=== PATIENT | male | born 2000 | race Caucasian/White ===

== ENCOUNTER 2021-07-09 19:22 | Inpatient (IN) | payer MEDICAID, SELFPAY ==
[2021-07-09] VITALS (15 sets, daily range): BP systolic 110–137; BP diastolic 50–73; PULSE 96–109; RESP 12–27; TEMP 36.4–39.4; O2SAT 95–100
--- NOTE | 2021-07-09 19:30 | DI.CT_ITS ---
Exam(s) CT ABDOMEN PELVIS W EXAM: CT ABDOMEN PELVIS W CLINICAL HISTORY: ABD pain- RLQ. TECHNIQUE: Imaging Protocol: Axial computed tomography images with coronal and sagittal reformatted images were created and reviewed CONTRAST MATERIAL: Intravenous: Omnipaque 100cc Oral: None COMPARISON: No exams were available for comparison FINDINGS: VISUALIZED LUNG BASES: No nodules nor pleural effusions evident. ABDOMEN: LIVER: Liver is hypodense implying steatosis. However, there are no discrete focal hepatic lesions i dentified. GALLBLADDER/BILIARY: No obvious gallbladder pathology. CBD is not dilated. PANCREAS: No evidence of pancreatic mass nor dilatation of the pancreatic duct. SPLEEN: Spleen is not enlarged. No obvious intrasplenic lesions. Splenic and portal veins are paten t. ADRENALS: There are no significant adrenal masses. KIDNEYS:No cysts evident. No solid renal masses. No calculi nor hydronephrosis.. ABDOMINAL AORTA: Abdominal aorta is not enlarged. LYMPH NODES:There is no retroperitoneal nor paraaortic adenopathy. ABDOMINAL WALL: No evidence of significant anterior abdominal wall nor inguinal hernia. PELVIS: GI: There is evidence of acute appendicitis. The appendix is swollen to 14 millimeter diameter and c ontains an appendicular list within its lumen which measures 9 x 7 millimeters. There is abundant ph legmonous streaking around the appendix as well as some fluid in the right paracolic gutter. No free air. No formed abscess. No enlarged lymph nodes are noted in the mesoappendix.There is a small carolee unt of fluid in the right-side of the dependent aspect of the pelvis.There is no significant sigmoid diverticular disease.. No evidence of bowel obstruction LYMPH NODES: There is no intrapelvic nor inguinal adenopathy. REPRODUCTIVE: Prostate not enlarged. URINARY BLADDER: No calculi nor obvious masses evident OSSEOUS: No significant osseous lesions. IMPRESSION: 1. Findings are consistent with severe acute appendicitis. Appendix lumen is significantly swollen a nd also contains an appendicolith. Abundant phlegmonous streaking in this region. High risk for dev eloping abscess. Study 1st read by [facility] RADIATION DOSE DELIVERED: 878.33mGy.cm Total DLP DATA REPOSITORY: All CT scans at this facility are submitted to the National Radiology Data Registry (NRDR) Dose Index Registry (DIR) with the [employer] (ACR). RADIATION OPTIMIZATION: All CT scans at this facility use at least one of these dose optimization te chniques: automated exposure control; mA and/or kV adjustment per patient size (includes targeted exa ms where dose is matched to clinical indication); or iterative reconstruction.
--- NOTE | 2021-07-09 19:41 | ED.GENADUL_ITS ---
Discharge Plan Disposition Patient Disposition: [facility] INPATIENT Condition: Fair Discharge Details Clinical Impression: Acute appendicitis Admit Date/Time: 07/09/21 20:25 Admit Provider: Radha Green Attending Provider: Radha Green Primary Care Provider: Dilan Vásquez ED Provider: Billy Schmidt Discharge Data Discharge Date/Time-TO BE ENTERED AT DEPARTURE: 07/09/21 21:29 Medical Decision Making Patient presenting to the emergency department for chief complaint of severe abdominal pain. Patient states over the last 3 to 4 days he has had nausea with close to vomiting, diarrhea, and abdominal pain. He states that it seems like it is migrated from general abdominal pain to the right lower quadrant recently. He states subjective fever and chills. Denies previous abdominal surgeries, history of kidney stones, or trauma. Physical exam shows acutely ill patient with significant amount of pain holding right lower quadrant of abdomen. Diffuse guarding throughout the abdomen with exquisite pain with palpation of right lower quadrant. Normal to hypoactive bowel sounds were somewhat appreciated but difficult to fully appreciate given patient amount of pain. Plan to perform labs, CT imaging, and treat pain and nausea. Labs show significant leukocytosis, CMP nondiagnostic with noted abnormalities, and CT imaging shows appendicitis with radiologist noting no rupture. Surgeon was contacted for admission and that she placed admission orders. As requested Zosyn was ordered in the emergency department pending admission. Discussed plan of care with patient and he is agreeable to admission and states no further questions at time of discussion. HPI General Mode of arrival: ambulatory . Date/Time Provider Initiated Documentation: 07/09/21 19:23 . Limitations to Documentation: no limitations . Information obtained by: patient . History of Present Illness 20 year old M presents to the emergency department with the chief complaint of abd pain -RLQ, described as severe, with intensity rated at 9. Quality is described as sharp, and is localized to the abdomen. Patient abdomen. Patient started experiencing this day(s) (3) and it has been constant. No relieving factors improve symptom(s), No exacerbating factors reported . Patient notes fever/chills and nausea/vomiting. Patient did receive the following treatments prior to arrival, NSAID Related Data Home Medications Medication Instructions Recorded Confirmed Unknown [No Known Home Meds] 07/09/21 07/09/21 Allergies Allergy/AdvReac Type Severity Reaction Status Date / Time No Known Allergies Allergy Unverified 07/09/21 19:34 General Stated Complaint: Abd Prob FIDELINA: 3 Review of Systems Constitutional Constitutional: Reports chills, Reports fever(s) and Reports poor appetite Cardiovascular Cardiovascular: Denies chest pain and Denies dyspnea Respiratory Respiratory: Denies cough and Denies dyspnea Gastrointestinal Gastrointestinal: Reports as per HPI, Reports abdominal pain, Denies melena, Denies change in bowel habits, Denies constipation, Reports diarrhea, Reports nausea and Denies vomiting Genitourinary Genitourinary: Denies hematuria, Denies difficulty urinating, Denies testicular pain, Denies urinary hesitancy, Denies urinary incontinence and Denies urinary urgency Integumentary/Breasts Skin/Breast: Denies rash PFSH All Active Problems (Updated 07/10/21 @ 11:40 by Radha Green DO) Perforated appendicitis (Acute) Acute appendicitis (Acute) Medical History (Updated 07/10/21 @ 11:40 by Radha Green DO) Asthma Family History (Updated 06/06/16 @ 13:51 by Mandy Mojica NP) Mother No problems noted. Father No problems noted. Sister No problems noted. Brother No problems noted. Other Depression Social History Smoking/Tobacco Use Status: Never Smoking risk assessment performed?: Yes Alcohol Intake: current Alcohol Intake frequency: holidays/special occasions only Substance use type: does not use Do you feel safe at home: Yes Do you feel safe in your relationship?: Yes Exam Const General: cooperative and ill appearing acutely Orientation: alert, awake and oriented x3 Resp Effort & Inspection: normal respiratory effort and able to speak in complete sentences Auscultation: clear to auscultation bilaterally Cardio Rate: regular rate Rhythm: regular rhythm Heart Sounds: S1 normal and S2 normal GI Palpation: soft, no hepatosplenomegaly, not firm, guarding, no masses, no pulsatile masses, not rigid, no splenomegaly and tender in the RLQ and psoas sign positive; Hayden's sign negative Auscultation: normal bowel sounds Back/Spine/Pelvis Back: no CVA tenderness Neuro General: patient alert, patient awake, patient oriented x3, gait normal and moves all extremities Course Vital Signs Vital signs: Vital Signs Temperature 36.4 C L 07/09/21 19:27 Pulse 97 H 07/09/21 19:27 Respiratory Rate 24 07/09/21 19:27 Blood Pressure 113/61 07/09/21 19:27 Pulse Oximetry 96 07/09/21 19:27 Temperature 36.4 C L 07/09/21 19:27 Temperature Source Skin 07/09/21 19:27 Pulse 97 H 07/09/21 19:27 Respiratory Rate 24 07/09/21 19:27 Blood Pressure 113/61 07/09/21 19:27 Blood Pressure Position Sitting 07/09/21 19:27 Pulse Oximetry 96 07/09/21 19:27 Oxygen Delivery Method Room Air 07/09/21 19:27 Oxygen Flow Rate 0 07/09/21 19:27 Pain Level 9 07/09/21 19:27 Comment 07/09/21 19:27
[2021-07-09] MEDS: Normal Saline 1,000 ML 1000 ML IV (19:48)
[2021-07-09 19:52] LABS: HGB 15.2 g/dL (13.5-17.5); MCH 26.2 pg (27.0-33.0); MCHC 32.3 % (32.0-36.0); MPV 10.2 fL (8.0-11.0); Nucleated RBC 0 %; Platelet Count 334 10^3/uL (130-400); RDW 12.2 % (11.8-14.1); RDW-SD 35.6 fL; WBC 20.81 10^3/uL (4.4-10.8)
[2021-07-09] MEDS: HYDROmorphone 2 MG/ML VIAL 0.5 MG IVP (19:52)
[2021-07-09] MEDS: Ondansetron 4 MG/2 ML VIAL IVP (19:53)
[2021-07-09] MEDS: Omnipaque 350 MG/ML 100 ML BTL IJ (19:57)
[2021-07-09 20:15] LABS: ALT 52 U/L (16-63); AST 16 U/L (15-37); Albumin 4.2 g/dL (3.4-5.0); Alkaline Phosphatase 132 U/L (46-116); BUN 7 mg/dL (7-18); Bilirubin, Total 0.8 mg/dL (0.2-1.0); CREATININE 0.9 mg/dL (0.70-1.30); Calcium 9.2 mg/dL (8.5-10.1); Chloride 100 mmol/L (98-107); Glucose 135 mg/dL (74-106); Lipase 67 U/L (73-393); Magnesium 1.7 mg/dL (1.8-2.4); Potassium 3.4 mmol/L (3.5-5.1); Sodium 137 mmol/L (136-145); Total Protein 8.4 g/dL (6.4-8.2)
[2021-07-09 20:23] LABS: Source Nasopharynx
--- NOTE | 2021-07-09 20:24 | DI.VRAD_ITS ---
Addendum created by Minoo Mg MD on 07/09/2021 8:26:41 PM EST: THIS REPORT CONTAINS FINDINGS THAT MAY BE CRITICAL TO PATIENT CARE. The pertinent findings were verbally communicated via telephone conference with GEORGE WEBER at 20:25 EST on 07/09/2021. The findings were acknowledged and understood. Initial report created on 07/09/2021 8:24:09 PM EST: PROCEDURE INFORMATION: Exam: CT Abdomen And Pelvis With Contrast Exam date and time: 07/09/2021 19:42 Age: 20 years old Clinical indication: Abdominal pain; Localized; Right lower quadrant (rlq); Patient HX: Abd pain - rlq TECHNIQUE: Imaging protocol: Computed tomography of the abdomen and pelvis with contrast. COMPARISON: No relevant prior studies available. FINDINGS: Liver: No mass. Gallbladder and bile ducts: No calcified stones. No ductal dilation. Pancreas: No ductal dilation. No masses. Spleen: No splenomegaly or focal lesions. Adrenal glands: No mass. Kidneys and ureters: No hydronephrosis. No renal masses. Stomach and bowel: Moderate wall thickening in the cecum. No focal pathology in the small bowel. Appendix: Acute appendicitis. The appendix measures up to 15 mm in diameter. Wall thickening and moderate surrounding edema. Proximal appendiceal stone. Intraperitoneal space: Sliver of free fluid in the pelvis in the rectovesical space. No abscess or free air. Vasculature: No abdominal aortic aneurysm. Lymph nodes: No significantly enlarged lymph nodes. Urinary bladder: Unremarkable as visualized. Reproductive: Unremarkable as visualized. Bones/joints: No acute fracture. Soft tissues: No suspicious lesions. IMPRESSION: 1. Acute appendicitis. No perforation or abscess. 2. Moderate reactive colitis of the cecum. Dictated and Authenticated by: Minoo Mg MD. Ordering:NOEL Cervantes MD
[2021-07-09 20:25] LABS: Absolute Lymphocyte Count 3.75 10^3/uL (1.2-3.4); Absolute Monocyte Count 1.87 10^3/uL (0.1-0.8); Absolute Neutrophil Count 15.19 10^3/uL (1.2-6.7); Atypical Lymphocytes % 7; Diff Comment Manual Differential; RBC Morphology Normal
[2021-07-09] MEDS: PIPERACILLIN/TAZO 4.5 GM in Normal Saline 100 ML IVPB (20:33)
--- NOTE | 2021-07-09 20:38 | HPE_ITS ---
Date of service: 07/09/21 Time of Service: 21:39 Assessment and Plan Assessment and plan (1) Acute appendicitis: Status: Acute Assessment and plan: -NPO, IV fluids, electrolytes and IV antibiotics to be initiated in the ER -COVID test pending -Scheduled IV tylenol, PRN Morphine or Dilaudid for pain control -Repeat labs in AM and plan to proceed with appendectomy first thing in the morning, OR crew aware -Lovenox for SVT ppx -Pepcid for GI ppx Qualifiers: Acute appendicitis type: with localized peritonitis Appendicitis abscess presence: without abscess Appendicitis gangrene presence: unspecified whether gangrene present Appendicitis perforation presence: unspecified whether perforation present Qualified Code(s): K35.30 - Acute appendicitis with localized peritonitis, without perforation or gangrene History of Present Illness Consults Consult date: 07/09/21 Narrative: 20 year old male with no past medical history who presented to the ER complaining of 3 days of abdominal pain that began around the umbilicus and migrated to the right lower quadrant. He reports fever and chills and taking motirn at home with little relief. Basic laboratory studies in the ER revealed evidence of leukocytosis of 20k, hypokalemia and hypomagnesemia, I have ordered him to receive 2g of MgSO4 and 10mg IV KCl. CT scan done in the ER revealed evidence of acute appendicitis with appendicolith. No reported perforation or abscess but significant periappendiceal inflammation is seen as well as free fluid in the pelvis. Patient was given IV Zosyn in the ER and at the time of consultation COVID screening remains pending. Review of Systems All systems reviewed & are unremarkable except as noted in HPI and below PFSH All Active Problems (Updated 07/09/21 @ 21:01 by Billy Schmidt NP) Acute appendicitis (Acute) Medical History (Updated 07/09/21 @ 21:01 by Billy Schmidt NP) Asthma Family History (Updated 06/06/16 @ 13:51 by Mandy Mojica NP) Mother No problems noted. Father No problems noted. Sister No problems noted. Brother No problems noted. Other Depression Social History Smoking/Tobacco Use Status: Never Smoking risk assessment performed?: Yes Alcohol Intake: current Alcohol Intake frequency: holidays/special occasions only Substance use type: does not use Do you feel safe at home: Yes Do you feel safe in your relationship?: Yes Meds Allergies and Home Medications Allergies Allergy/AdvReac Type Severity Reaction Status Date / Time No Known Allergies Allergy Unverified 07/09/21 19:34 Home Medications Medication Instructions Recorded Confirmed Type Unknown [No Known Home Meds] 07/09/21 07/09/21 History Exam Const General: cooperative, healthy appearing and other (appears uncomfortable) [facility] Head: normal to inspection and atraumatic Eyes General: appearance normal, both eyes and all related structures Eyelids: eyelids normal Conjunctivae: conjunctivae normal Sclera: sclerae normal Resp Effort & Inspection: normal respiratory effort, able to speak in complete sentences, no audible wheezes and no respiratory distress Cardio Rate: regular rate Rhythm: regular rhythm GI Inspection: normal to inspection Palpation: soft, guarding and tender in the RLQ and at McBurney's point Percussion: normal to percussion Skin General skin exam: no rashes or lesions noted Neuro General: patient alert, patient awake and patient oriented x3 Extrem General: normal to inspection and full ROM Results Labs Result diagrams: 07/10/21 07:12 07/10/21 07:12 Labs: Laboratory Results - last 24 hr 07/09/21 07/09/21 07/09/21 19:48 19:48 20:20 WBC 20.81 H RBC 5.80 H Hgb 15.2 Hct 47.0 MCV 81.0 MCH 26.2 L MCHC 32.3 RDW 12.2 Plt Count 334 MPV 10.2 Immature Gran % 0.0 Neutrophils % 73.0 Lymphocytes % 11.0 Atypical Lymphs % 7 Monocytes % 9.0 Eosinophils % 0.0 Basophils % 0.0 Nucleated RBC % 0 Absolute Neutrophils 15.19 H Absolute Lymphocytes 3.75 H Absolute Monocytes 1.87 H Absolute Eosinophils 0.00 Absolute Basophils 0.00 RBC Morphology Normal Sodium 137 Potassium 3.4 L Chloride 100 Carbon Dioxide 24.0 Anion Gap 13.0 H BUN 7 Creatinine 0.9 Estimated GFR/1.73 m2 >= 60.00 Glucose 135 H Calcium 9.2 Magnesium 1.7 L Total Bilirubin 0.8 AST 16 ALT 52 Alkaline Phosphatase 132 H Total Protein 8.4 H Albumin 4.2 Lipase 67 COVID-19 Source Nasopharynx Last Vital Signs Temp 97.5 F L 07/09/21 19:27 Pulse 105 H 07/09/21 20:15 Resp 24 07/09/21 19:27 BP 137/50 L 07/09/21 20:15 Pulse Ox 97 07/09/21 20:20
[2021-07-09 20:40] LABS: Bilirubin Negative (Negative); Blood Trace-intact (Negative); Clarity Clear (Clear); Glucose Negative (Negative); Ketones 80 mg/dL (Negative); Leukocyte Esterase Negative (Negative); Nitrite Negative (Negative); Urobilinogen 0.2 EU/dL (Up TO 0.2); pH 6.5 (5-8)
[2021-07-09 20:51] LABS: Bacteria Negative HPF (Negative); C & S Indicated? No; Casts 0-2 Hyaline LPF (Negative); Crystals Negative HPF (Negative); Epithelial Cells Negative HPF (Negative); Mucus Trace (Negative); RBC 0-2 HPF (0-2); WBC Negative HPF (0-5)
[2021-07-09] MEDS: Lactated Ringers 1,000 ML 125 ML IV (20:56)
[2021-07-09 21:05] LABS: COVID-19 PCR Negative (Negative); Influenza A PCR Negative (Negative); Influenza B PCR Negative (Negative); RSV PCR Negative (Negative)
[2021-07-09] MEDS: ACETAMINOPHEN 1,000 MG/100 ML BTL 400 MG IVPB (22:20)
[2021-07-09] MEDS: Pantoprazole 40 MG VIAL IVP (22:21)
[2021-07-09] MEDS: Normal Saline Flush 10 ML SYR IVP (22:21)
[2021-07-09] MEDS: Normal Saline 500 ML 30 ML IV (22:22)
[2021-07-09] MEDS: POTASSIUM CHLORIDE 10 MEQ/100 ML BAG 100 MEQ IVPB (23:23)
[2021-07-10] VITALS (15 sets, daily range): BP systolic 109–140; BP diastolic 55–84; PULSE 87–104; RESP 16–25; TEMP 36.3–38.4; O2SAT 96–99; BMI 25.7
[2021-07-10] MEDS: Normal Saline Flush 10 ML SYR IVP ×3 (00:04→22:43)
[2021-07-10] MEDS: MAGNESIUM SULFATE 2 GM/50 ML BAG IVPB (00:57)
[2021-07-10] MEDS: PIPERACILLIN/TAZO 3.375 GM in Normal Saline 50 ML IVPB ×4 (03:38→22:42)
[2021-07-10] MEDS: ACETAMINOPHEN 1,000 MG/100 ML BTL 400 MG IVPB ×3 (04:29→16:41)
[2021-07-10] MEDS: Lactated Ringers 1,000 ML 125 ML IV ×2 (06:47→14:59)
[2021-07-10] MEDS: Enoxaparin 40 MG/0.4 ML SYR SC (07:41)
[2021-07-10 07:49] LABS: Absolute Basophil Count 0.03 10^3/uL (0.0-0.2); Absolute Lymphocyte Count 1.95 10^3/uL (1.2-3.4); Basophils % 0.2; Eosinophils % 0.1; HCT 42.4 % (40.0-50.0); HGB 13.6 g/dL (13.5-17.5); Immature Grans % 0.7; Lymphocytes % 12.8; MCH 26.3 pg (27.0-33.0); MCHC 32.1 % (32.0-36.0); MCV 81.9 fL (80-95); MPV 10.4 fL (8.0-11.0); Monocytes % 9.8; Neutrophils % 76.4; Nucleated RBC 0 %; Platelet Count 227 10^3/uL (130-400); RBC 5.18 10^6/uL (4.36-5.78); RDW 12.3 % (11.8-14.1); RDW-SD 37.2 fL; WBC 15.26 10^3/uL (4.4-10.8)
[2021-07-10 07:55] LABS: Absolute Eosinophil Count 0.02 10^3/uL (0.0-0.7); Absolute Neutrophil Count 11.66 10^3/uL (1.2-6.7)
[2021-07-10 08:06] LABS: INR 1.2 (0.9-1.1); Prothrombin Time 11.9 sec (9.3-11.0)
[2021-07-10 08:07] LABS: ALT 39 U/L (16-63); AST 11 U/L (15-37); Albumin 3.3 g/dL (3.4-5.0); Alkaline Phosphatase 72 U/L (46-116); Anion Gap 11.8 mmol/L (3-11); BUN 8 mg/dL (7-18); CO2 25.2 mmol/L (21.0-32.0); CREATININE 0.8 mg/dL (0.70-1.30); Calcium 8.7 mg/dL (8.5-10.1); Chloride 103 mmol/L (98-107); Glucose 107 mg/dL (74-106); Potassium 3.6 mmol/L (3.5-5.1); Sodium 140 mmol/L (136-145); Total Protein 7.1 g/dL (6.4-8.2)
--- NOTE | 2021-07-10 08:20 | W.ANESPRE ---
General Info Date of Service Date Performed: 07/10/21 Height: 5 ft 11 in Weight: 83.6 kg Body Mass Index (BMI): 25.7 Surgical Procedure: Operation Date: 07/10/21 08:00 Proposed Procedures Side Surgeon p Appendectomy Laparoscopic Radha Green, Meds Allergies and Home Medications Allergies Allergy/AdvReac Type Severity Reaction Status Date / Time No Known Allergies Allergy Unverified 07/09/21 19:34 Home Medication Medication Instructions Recorded Unknown [No Known Home Meds] 07/09/21 Current Visit Medications: Current Medications Generic Name Dose Route Start Last Admin Trade Name Freq PRN Reason Stop Dose Admin Enoxaparin Sodium 40 mg 07/10/21 08:30 07/10/21 07:41 Enoxaparin 40 Mg/0.4 Ml Syr SC 40 mg Q24H [place] Administration Hydromorphone HCl 1 mg 07/09/21 20:25 Hydromorphone 2 Mg/Ml Vial IVP Q4H PRN PRN Pain Sodium Chloride 500 mls @ 0 mls/hr 07/09/21 20:25 07/09/21 22:22 Saline 500ml Bag IV 30 mls/hr PRN PRN Administration As Directed Ringer's Solution 1,000 mls @ 125 mls/hr 07/09/21 20:30 07/10/21 06:47 IV 125 mls/hr INFUSION [place] Administration Acetaminophen 1,000 mg in 100 mls @ 400 mls/hr 07/09/21 22:00 07/10/21 07:40 Ofirmev IVPB Infused Q6H [place] Infusion Piperacillin Sod/Tazobactam 50 mls @ 100 mls/hr 07/10/21 10:00 Sod 3.375 gm/ Sodium Chloride IVPB Q6H [place] Protocol IV Miscellaneous Supplies 1 each 07/09/21 20:30 Iv Access IV DIRECTED [place] Morphine Sulfate 4 mg 07/09/21 21:38 Morphine 4 Mg/Ml Syr IVP Q1H PRN PRN Ondansetron HCl 4 mg 07/09/21 20:25 Ondansetron 4 Mg/2 Ml Vial IVP Q4H PRN PRN Pantoprazole Sodium 40 mg 07/09/21 22:00 07/09/21 22:21 Pantoprazole 40 Mg Vial IVP 40 mg Q24H [place] Administration Sodium Chloride 0 ml 07/09/21 20:25 07/10/21 07:41 Normal Saline Flush 10 Ml Syr IVP 30 ml PRN PRN Administration PFSH Active Problems Active Problems: Problem Status Onset Code Acute appendicitis K35.80 Medical History Medical History (Updated 07/09/21 @ 21:01 by Billy Schmidt NP) Asthma Tobacco Smoking/Tobacco Use Status: Never Alcohol Alcohol Intake: current Alcohol intake frequency: holidays/special occasions only Substance Use Substance use type: does not use Vital Signs and Lab Results Vital Signs Most Recent Vital Signs in EMR: Most Recent Vital Signs Temp Pulse Resp BP Pulse Ox 37.2 C 104 H 16 113/69 96 07/10/21 06:22 07/10/21 03:39 07/10/21 03:39 07/10/21 03:39 07/10/21 03:39 Lab Results Result Diagrams: 07/10/21 07:12 07/10/21 07:12 Blood Type / Crossmatch: Patient ABO/Rh AB Positive 07/10/21 Antibody Screen NEGATIVE 07/10/21 Complete Blood Count: White Blood Count 15.26 10^3/uL (4.4-10.8) H 07/10/21 07:12 07/10/21 Red Blood Count 5.18 10^6/uL (4.36-5.78) 07/10/21 07:12 07/10/21 Hemoglobin 13.6 g/dL (13.5-17.5) 07/10/21 07:12 07/10/21 Hematocrit 42.4 % (40.0-50.0) 07/10/21 07:12 07/10/21 Platelet Count 227 10^3/uL (130-400) 07/10/21 07:12 07/10/21 Complete Metabolic Panel: Sodium Level 140 mmol/L (136-145) 07/10/21 07:12 07/10/21 Potassium Level 3.6 mmol/L (3.5-5.1) 07/10/21 07:12 07/10/21 Chloride Level 103 mmol/L (98-107) 07/10/21 07:12 07/10/21 Carbon Dioxide Level 25.2 mmol/L (21.0-32.0) 07/10/21 07:12 07/10/21 Blood Urea Nitrogen 8 mg/dL (7-18) 07/10/21 07:12 07/10/21 Creatinine 0.8 mg/dL (0.70-1.30) 07/10/21 07:12 07/10/21 Estimated GFR/1.73 m2 >= 60.00 (mL/min/1.73m2) 07/10/21 07:12 07/10/21 Magnesium Level 1.7 mg/dL (1.8-2.4) L 07/09/21 19:48 07/09/21 Calcium Level 8.7 mg/dL (8.5-10.1) 07/10/21 07:12 07/10/21 Albumin 3.3 g/dL (3.4-5.0) L 07/10/21 07:12 07/10/21 Glucose Level 107 mg/dL (74-106) H 07/10/21 07:12 07/10/21 Liver Function Panel: Alanine Aminotransferase (ALT/SGPT) 39 U/L (16-63) 07/10/21 07:12 07/10/21 Aspartate Amino Transf (AST/SGOT) 11 U/L (15-37) L 07/10/21 07:12 07/10/21 Coagulation Panel: INR International Normalized Ratio 1.2 (0.9-1.1) H 07/10/21 07:12 07/10/21 Prothrombin Time 11.9 sec (9.3-11.0) H 07/10/21 07:12 07/10/21 Cardiac Panel: No Data to Display Arterial Blood Gas: No Data to Display Venous Blood Gas: No Data to Display Pancreas Panel: Lipase 67 U/L (73-393) 07/09/21 19:48 07/09/21 Thyroid Panel: No Data to Display Infectious Disease: Coronavirus (COVID-19)(PCR) Negative (Negative) 07/09/21 20:20 07/09/21 Coronavirus 2019 Source Nasopharynx 07/09/21 20:20 07/09/21 Influenza Virus Type A (PCR) Negative (Negative) 07/09/21 20:20 07/09/21 Influenza Virus Type B (PCR) Negative (Negative) 07/09/21 20:20 07/09/21 Respiratory Syncytial Virus (PCR) Negative (Negative) 07/09/21 20:20 07/09/21 Blood Cultures: No Data to Display Toxicology Panel: No Data to Display Anesthesia Assessment and Plan Anesthesia History Personal History: No History of Anesthesia Complications Family History: No Family History of Anesthesia Complications Exercise Tolerance Exercise Tolerance: Metabolic Equivalents>4 Pertinent Negatives Pertinent Negatives: No Symptoms of GERD Cardiac & Pulmonary Exam Cardiac Exam: Normal S1/S2 Heart Sounds Pulmonary Exam: Clear Bilateral Breath Sounds Implantable Cardiac Device Does patient have a Pacemaker or an ICD?: No Airway Exam Known Difficult Airway: No Mallampati Class: 2 Mouth Opening: Normal (> 3cm) Thyromental Distance: Greater than 3 cm Neck Range of Motion: Full ROM Neck Circumference: Normal Teeth Condition: Normal Dentition ASA Classification ASA Score: ASA 2 Emergency Case?: No NPO Status NPO Status: NPO Clears >2 hours, Solids >8 hours Anesthesia Plan Resuscitation Status: Full Code Anesthesia Technique: General Anesthesia Airway Planned: Endotracheal Tube Monitors Used: Standard Monitors
[2021-07-10] MEDS: Bupivacaine LIPOSOME/PF 133 MG/10 ML VIAL IJ (09:17)
[2021-07-10] MEDS: Bupivacaine 0.25% Pres-Free 10 ML VIAL (09:17)
--- NOTE | 2021-07-10 10:00 | APP_PTH ---
PATIENT: Mark Anthony Underwood LOC: U#:[id number] AGE/SX: 20/M ROOM: 226 RE07/09/[address]: Radha Green DO : 2000 BED: A DIS: 07/13/2021 SPEC #: [id number] RECD: 07/11/21 12:22 STATUS: SOUT REQ #: [id number] LEE: 07/10/21 10:[address]: Radha Green DEPT: Surgical Specimen RECD BY: Radha Covarrubias ENTERED: 07/11/21 12:23 SP TYPE: Appendix OTHR DR: Dilan Vásquez DO Tissues: 1 - APPENDIX NOT INCIDENTAL Procedures: GROSS AND MICRO LEVEL 3 Comments: [id number]
--- NOTE | 2021-07-10 10:06 | W.PM.OP ---
Date of service: 07/10/21 Time of Service: 10:06 Operative Note Operative Note DATE OF PROCEDURE: 07/10/21 PRE-OP DIAGNOSIS: acute appendicitis perforated appendicitis with phlegmon PROCEDURE: laparoscopic appendectomy SURGEON: Radha Green DEHYDROGENATION CONVERTER HELPER: Blue Douglas ANESTHESIA TYPE: Local By Surgeon and General LMA/ETT Refer to Anesthesia Record ESTIMATED BLOOD LOSS: 10 PATHOLOGY: other (appendix) COMPLICATIONS: None Patient was transported to: PACU Patient's condition: stable Implants: none Indications: patient with clinical and CT evidence of acute appendicitis with possible perforation, after initiating IV antibiotics and discussing all risks benefits and alternatives with the patient informed consent was obtained for laparoscopic possible open appendectomy. Findings: large phlegmon surrounding appendix which was edematous and friable, likely perforated Procedure Description: Patient was taken to the operating room and placed on the operating room table in supine position. After taking care to ensure all dependent areas were adequately padded and the patient was comfortable general anesthesia was initiated. The patient was prepped and draped in the usual sterile fashion. Local anesthesia was injected into the infraumbilical tissues. Using a # 11 blade scalpel an incision was created and dissection was carried down through the subcutaneous tissues using Bovie electrocautery. The umbilical stalk was grasped with a zoya and lifted up. A small incision was created in the fascia gaining access to the abdominal cavity. A 12 mm port was subsequently placed and the abdomen was insufflated with CO2. A 5 mm camera was placed into the abdominal cavity which was explored. An area of phlegmonous changes was visualized in the right mid abdomen with inflammatory changes noted to the adjacent loops of bowel. Two 5 mm incisions were made after injection with local anesthesia and subsequent port placement under direct visualization in the super pubic area and left mid abdomen respectively. Blunt graspers were used to assist in lifting the very edematous and friable appendix. LigaSure device was used to assist with dissection of the mesoappendix and apprndix which was adhered to the lateral abdominal wall. Once the appendix was freed and able to be lifted up a small hole was created in the mesoappendix at the base in order to accommodate a 45 mm purple staple load. The apppendix was transected at its base successfully and LigaSure device again assisted in hemostatic dissection. there was a small amount of bleeding from the surrounding tissues due to the amount of inflammation but was able to be irrigated and suctioned out of the abdomen. Care was taken to ensure that the appendiceal tip was intact and no pieces were left behind. The appendix was placed into an Endo catch bag. there was no significant free fluid within the pelvis to suction out. Each 5 mm port was removed under direct visualization and appeared to be hemostatic. The appendix in the Endo catch bag was removed through the 12 mm port site. The umbilical fascia was closed in a figure of eight fashion using an 0-Vicryl. The skin was closed with a running 4-0 Monocryl and each 5 mm port site closed with an interrupted 4-0 Monocryl. Skin glue was applied over each incision site. All needle, sponge and instrument counts were correct x2 at the end of the procedure. The patient tolerated the procedure well without any complications and was transferred to PACU in stable condition once extubated.
[2021-07-10] MEDS: MORPHine 4 MG/ML SYR IVP ×2 (11:17→22:33)
--- NOTE | 2021-07-10 11:27 | W.ANESPOSTOP ---
Postoperative Evaluation Date, Time and Location Date Performed: 07/10/21 Time Performed: 11:00 Patient Location: PACU Vital Signs Most Recent Imported Vital Signs: Most Recent Vital Signs Temp Pulse Resp BP Pulse Ox 36.3 C L 89 18 133/84 99 07/10/21 10:59 07/10/21 10:59 07/10/21 10:59 07/10/21 10:59 07/10/21 10:59 Pain Score Most Recent Pain Score: Most Recent Pain Score Pain Level 5 07/10/21 04:29 Assessment Mental Status: Awake (Alert & Oriented to Patient Baseline) Airway and Respiratory Function: Patent airway with normal (patient baseline) respiratory exam Cardiovascular Function: Hemodynamically Stable Hydration Status: Adequately Hydrated Nausea & Vomiting: No Nausea or Vomiting Pain: Pain is tolerable per patient Peripheral Nerve Block: Patient did not receive a nerve block
--- NOTE | 2021-07-10 11:38 | PGE_ITS ---
Date of Service Date of service: 07/10/21 Time of Service: 11:38 Assessment and Plan Assessment and plan (1) Perforated appendicitis: Status: Acute Assessment and plan: -Postoperative diet, advance as tolerated. -Will decrease IV fluid rate to 75 mL per hour -IV Tylenol, PRN Tramadol and Morphine for breakthrough pain -Continue IV Zosyn for another 24h and repeat labs in AM -Lovenox for DVT ppx -Encourage ambulation and incentive spirometer use -Discussed plan with patient's mother via phone post operatively Subjective Subjective Patient reports: no new complaints Exam Const General: cooperative, healthy appearing and other (appears uncomfortable) [facility] Head: normal to inspection and atraumatic Eyes General: appearance normal, both eyes and all related structures Eyelids: eyelids normal Conjunctivae: conjunctivae normal Sclera: sclerae normal Resp Effort & Inspection: normal respiratory effort, able to speak in complete sentences, no audible wheezes and no respiratory distress Cardio Rate: regular rate Rhythm: regular rhythm GI Inspection: normal to inspection and incision (intact with skin glue) Palpation: soft and tender (minimal expected post op) Percussion: normal to percussion Skin General skin exam: no rashes or lesions noted Neuro General: patient alert, patient awake and patient oriented x3 Extrem General: normal to inspection and full ROM Objective Last Vital Signs Temp 97.3 F L 07/10/21 10:59 Pulse 89 07/10/21 10:59 Resp 18 07/10/21 10:59 BP 133/84 07/10/21 10:59 Pulse Ox 99 07/10/21 10:59 Laboratory Results - last 24 hr 07/09/21 07/09/21 07/09/21 19:48 19:48 20:20 WBC 20.81 H RBC 5.80 H Hgb 15.2 Hct 47.0 MCV 81.0 MCH 26.2 L MCHC 32.3 RDW 12.2 Plt Count 334 MPV 10.2 Immature Gran % 0.0 Neutrophils % 73.0 Lymphocytes % 11.0 Atypical Lymphs % 7 Monocytes % 9.0 Eosinophils % 0.0 Basophils % 0.0 Nucleated RBC % 0 Absolute Neutrophils 15.19 H Absolute Lymphocytes 3.75 H Absolute Monocytes 1.87 H Absolute Eosinophils 0.00 Absolute Basophils 0.00 RBC Morphology Normal PT INR Sodium 137 Potassium 3.4 L Chloride 100 Carbon Dioxide 24.0 Anion Gap 13.0 H BUN 7 Creatinine 0.9 Estimated GFR/1.73 m2 >= 60.00 Glucose 135 H Calcium 9.2 Magnesium 1.7 L Total Bilirubin 0.8 AST 16 ALT 52 Alkaline Phosphatase 132 H Total Protein 8.4 H Albumin 4.2 Lipase 67 Urine Color Urine Clarity Urine pH Ur Specific [place] Urine Protein Urine Ketones Urine Blood Urine Nitrite Urine Bilirubin Urine Urobilinogen Ur Leukocyte Esterase Urine RBC Urine WBC Ur Epithelial Cells Urine Crystals Urine Bacteria Urine Casts Urine Mucus Ur Culture Indicated? Urine Glucose COVID-19 Source Nasopharynx SARS-CoV-2 (PCR) Negative Influenza Type A (PCR) Negative Influenza Type B (PCR) Negative RSV (PCR) Negative Patient ABO/Rh Antibody Screen 07/09/21 07/10/21 07/10/21 20:34 07:12 07:12 WBC 15.26 H RBC 5.18 Hgb 13.6 Hct 42.4 MCV 81.9 MCH 26.3 L MCHC 32.1 RDW 12.3 Plt Count 227 D MPV 10.4 Immature Gran % 0.7 Neutrophils % 76.4 Lymphocytes % 12.8 Atypical Lymphs % Monocytes % 9.8 Eosinophils % 0.1 Basophils % 0.2 Nucleated RBC % 0 Absolute Neutrophils 11.66 H Absolute Lymphocytes 1.95 Absolute Monocytes 1.50 H Absolute Eosinophils 0.02 Absolute Basophils 0.03 RBC Morphology PT INR Sodium 140 Potassium 3.6 Chloride 103 Carbon Dioxide 25.2 Anion Gap 11.8 H BUN 8 Creatinine 0.8 Estimated GFR/1.73 m2 >= 60.00 Glucose 107 H Calcium 8.7 Magnesium Total Bilirubin 1.0 AST 11 L ALT 39 Alkaline Phosphatase 72 Total Protein 7.1 Albumin 3.3 L Lipase Urine Color Yellow Urine Clarity Clear Urine pH 6.5 Ur Specific [place] 1.010 Urine Protein 30 H Urine Ketones 80 H Urine Blood Trace-intact H Urine Nitrite Negative Urine Bilirubin Negative Urine Urobilinogen 0.2 Ur Leukocyte Esterase Negative Urine RBC 0-2 Urine WBC Negative Ur Epithelial Cells Negative Urine Crystals Negative Urine Bacteria Negative Urine Casts 0-2 Hyaline Urine Mucus Trace Ur Culture Indicated? No Urine Glucose Negative COVID-19 Source SARS-CoV-2 (PCR) Influenza Type A (PCR) Influenza Type B (PCR) RSV (PCR) Patient ABO/Rh Antibody Screen 07/10/21 07/10/21 07:12 07:12 WBC RBC Hgb Hct MCV MCH MCHC RDW Plt Count MPV Immature Gran % Neutrophils % Lymphocytes % Atypical Lymphs % Monocytes % Eosinophils % Basophils % Nucleated RBC % Absolute Neutrophils Absolute Lymphocytes Absolute Monocytes Absolute Eosinophils Absolute Basophils RBC Morphology PT 11.9 H INR 1.2 H Sodium Potassium Chloride Carbon Dioxide Anion Gap BUN Creatinine Estimated GFR/1.73 m2 Glucose Calcium Magnesium Total Bilirubin AST ALT Alkaline Phosphatase Total Protein Albumin Lipase Urine Color Urine Clarity Urine pH Ur Specific [place] Urine Protein Urine Ketones Urine Blood Urine Nitrite Urine Bilirubin Urine Urobilinogen Ur Leukocyte Esterase Urine RBC Urine WBC Ur Epithelial Cells Urine Crystals Urine Bacteria Urine Casts Urine Mucus Ur Culture Indicated? Urine Glucose COVID-19 Source SARS-CoV-2 (PCR) Influenza Type A (PCR) Influenza Type B (PCR) RSV (PCR) Patient ABO/Rh AB Positive Antibody Screen NEGATIVE
--- NOTE | 2021-07-10 12:55 | NUR.NOTE ---
Patient returned to [facility] room at 1114 from PACU. Patient is drowsy but oriented, opening eyes to name. Patient is endorsing more pain (up to 6/10, grimacing) and is now requesting PRN pain medication. IV w/ LR still in place R AC. 3 trochar sites affixed w/ surgery glue adhesive. Incision sites w/o drainage. VSS checked and stable. Water and jello provided. No other interventions requested by patient at this time. Nursing Note:
--- NOTE | 2021-07-10 17:05 | PDOC.CMIN ---
- If Service Date Differs Date of service: 07/10/21 Time of Service: 17:06 Care Management Initial Assess REASON FOR HOSPITALIZATION:: Acute appendicitis with perforation PAST MEDICAL HISTORY/PAST SURGICAL HISTORY:: Asthma PREVIOUS FUNCTIONAL STATUS/SOCIAL/FAMILY SUPPORTS:: Mark Anthony resides with his mother, Aydee in [facility]. He is independent at baseline in the community. CURRENT FUNCTIONAL STATUS:: Mark Anthony was brought to the OR today. He will be monitored closely post operatively with post op diet advanced by toleration and remains on IVF and IV Abx at this time. CM continues to follow. ADVANCE DIRECTIVES:: None on file. Has patient been provided with info about the portal/API?: Yes Did the patient sign up for the portal?: No CODE STATUS:: Full Code INSURANCE COVERAGE / FINANCIAL ISSUES:: Medicaid CURRENT HOME/COMMUNITY SERVICES/EQUIPMENT:: None, currently. PRIMARY CARE PHYSICIAN:: Dilan Vásquez POTENTIAL DISCHARGE NEEDS:: Follow up appointments. PATIENT/FAMILY EDUCATION NEEDS:: Review of discharge instructions, discuss Ask Me Three. ANTICIPATED BARRIERS TO DISCHARGE:: None identified. TRANSPORTATION:: Via private vehicle with family. PLAN:: Mark Anthony will return home when ready per MD. He will follow up with surgical services and his PCP and plan of care as prescribed. He will transport via private vehicle with his mother.
[2021-07-10] MEDS: Pantoprazole 40 MG VIAL IVP (22:43)
[2021-07-10] MEDS: Acetaminophen 325 MG TAB 650 MG PO (23:34)
[2021-07-11] MEDS: PIPERACILLIN/TAZO 3.375 GM in Normal Saline 50 ML IVPB ×4 (04:26→22:30)
[2021-07-11] MEDS: Acetaminophen 325 MG TAB 650 MG PO ×3 (05:57→17:53)
[2021-07-11 06:57] LABS: Abs Immature Grans 0.04 10^3/uL (0.0-0.06); Absolute Basophil Count 0.03 10^3/uL (0.0-0.2); Absolute Eosinophil Count 0.04 10^3/uL (0.0-0.7); Absolute Lymphocyte Count 1.99 10^3/uL (1.2-3.4); Absolute Monocyte Count 1.26 10^3/uL (0.1-0.8); Absolute Neutrophil Count 10.48 10^3/uL (1.2-6.7); Basophils % 0.2; Eosinophils % 0.3; HCT 42.2 % (40.0-50.0); HGB 13.2 g/dL (13.5-17.5); Immature Grans % 0.3; Lymphocytes % 14.4; MCH 26.2 pg (27.0-33.0); MCHC 31.3 % (32.0-36.0); MCV 83.7 fL (80-95); MPV 10.4 fL (8.0-11.0); Monocytes % 9.1; Neutrophils % 75.7; Nucleated RBC 0 %; Platelet Count 243 10^3/uL (130-400); RBC 5.04 10^6/uL (4.36-5.78); RDW 12.6 % (11.8-14.1); WBC 13.84 10^3/uL (4.4-10.8)
[2021-07-11 07:08] LABS: Anion Gap 9.8 mmol/L (3-11); BUN 9 mg/dL (7-18); CO2 29.2 mmol/L (21.0-32.0); CREATININE 0.9 mg/dL (0.70-1.30); Calcium 8.9 mg/dL (8.5-10.1); Chloride 103 mmol/L (98-107); Glucose 104 mg/dL (74-106); Magnesium 2.1 mg/dL (1.8-2.4); Potassium 3.7 mmol/L (3.5-5.1); Sodium 142 mmol/L (136-145)
[2021-07-11 07:35] VITALS: BP 118/72; PULSE 101; RESP 18; TEMP 37.7; O2SAT 97
--- NOTE | 2021-07-11 08:13 | W.PM.PROGNOT ---
Date of Service Date of service: 07/11/21 Time of Service: 08:15 Assessment and Plan Assessment and plan (1) Perforated appendicitis: Status: Acute Assessment and plan: -Postoperative diet, advance as tolerated. -IV Tylenol, PRN Tramadol and Morphine for breakthrough pain -Order dose of Simethicone to help with gas pain -Ordered Aqua K pack for Right shoulder/upper back discomfort -Continue IV Zosyn for another 24h -WBC trending downard 13.84 this AM -Lovenox for DVT ppx -Encourage ambulation and incentive spirometer use Subjective Subjective Interval history since last seen: Patient describes feeling better. Expressed feeling like he has a lot of gas pain. This improved slightly after passing flatus. He is tolerating post-op diet. Exam Const General: cooperative, healthy appearing and comfortable Orientation: alert and oriented x3 Resp Effort & Inspection: normal respiratory effort, no audible wheezes and no cough GI Palpation: soft, no guarding and tender (RUQ/RLQ ) Other: Skin a fix in place. No erythema, swelling or induration around port sites. Objective Last Vital Signs Temp 37.6 C H 07/10/21 23:30 Pulse 90 07/10/21 23:30 Resp 18 07/10/21 23:30 BP 140/80 07/10/21 23:30 Pulse Ox 97 07/10/21 23:30 Laboratory Results - last 24 hr 07/10/21 07/11/21 07/11/21 07:12 06:30 06:30 WBC 13.84 H RBC 5.04 Hgb 13.2 L Hct 42.2 MCV 83.7 MCH 26.2 L MCHC 31.3 L RDW 12.6 Plt Count 243 MPV 10.4 Immature Gran % 0.3 Neutrophils % 75.7 Lymphocytes % 14.4 Monocytes % 9.1 Eosinophils % 0.3 Basophils % 0.2 Nucleated RBC % 0 Absolute Neutrophils 10.48 H Absolute Lymphocytes 1.99 Absolute Monocytes 1.26 H Absolute Eosinophils 0.04 Absolute Basophils 0.03 Sodium 142 Potassium 3.7 Chloride 103 Carbon Dioxide 29.2 Anion Gap 9.8 BUN 9 Creatinine 0.9 Estimated GFR/1.73 m2 >= 60.00 Glucose 104 Calcium 8.9 Magnesium 2.1 Patient ABO/Rh AB Positive Antibody Screen NEGATIVE
[2021-07-11] MEDS: Enoxaparin 40 MG/0.4 ML SYR SC (09:01)
[2021-07-11] MEDS: Normal Saline Flush 10 ML SYR IVP ×4 (09:01→22:29)
[2021-07-11] MEDS: Simethicone 80 MG CHEW PO (09:01)
--- NOTE | 2021-07-11 09:22 | PDOC.CMPRO ---
- If Service Date Differs Date of service: 07/11/21 Time of Service: 09:22 Care Management Progress Note S/O: Mark Anthony continues to be closely monitored. CM continues to follow. Treatment plan per MD: Postoperative diet, advance as tolerated. -IV Tylenol, PRN Tramadol and Morphine for breakthrough pain -Order dose of Simethicone to help with gas pain -Ordered Aqua K pack for Right shoulder/upper back discomfort -Continue IV Zosyn for another 24h -WBC trending downard 13.84 this AM -Lovenox for DVT ppx -Encourage ambulation and incentive spirometer use A: 20 year old male admitted 07/09/20 for acute appendicitis with perforation P: Mark Anthony will return home when ready per MD. No additional services anticipated at this time. He will transport via private vehicle with family, follow up with his PCP and plan of care.
[2021-07-11] MEDS: Normal Saline 500 ML 30 ML IV (10:55)
[2021-07-11 12:39] VITALS: BP 125/75; PULSE 96; RESP 18; TEMP 37.9; O2SAT 97
[2021-07-11 15:46] VITALS: BP 128/81; PULSE 106; RESP 21; TEMP 37.7; O2SAT 97
[2021-07-11] MEDS: Pantoprazole 40 MG VIAL IVP (22:29)
[2021-07-12] VITALS (7 sets, daily range): BP systolic 110–142; BP diastolic 69–83; PULSE 91–108; RESP 14–18; TEMP 36.2–39; O2SAT 94–99
[2021-07-12] MEDS: PIPERACILLIN/TAZO 3.375 GM in Normal Saline 50 ML IVPB ×4 (04:04→22:05)
[2021-07-12] MEDS: Acetaminophen 325 MG TAB 650 MG PO ×4 (04:13→22:06)
[2021-07-12 07:18] LABS: Abs Immature Grans 0.06 10^3/uL (0.0-0.06); Absolute Basophil Count 0.03 10^3/uL (0.0-0.2); Absolute Eosinophil Count 0.11 10^3/uL (0.0-0.7); Absolute Lymphocyte Count 1.57 10^3/uL (1.2-3.4); Absolute Monocyte Count 1.19 10^3/uL (0.1-0.8); Absolute Neutrophil Count 7.35 10^3/uL (1.2-6.7); Basophils % 0.3; Eosinophils % 1.1; HCT 38.6 % (40.0-50.0); HGB 12.2 g/dL (13.5-17.5); Immature Grans % 0.6; Lymphocytes % 15.2; MCH 26.2 pg (27.0-33.0); MCHC 31.6 % (32.0-36.0); MCV 82.8 fL (80-95); MPV 10.4 fL (8.0-11.0); Monocytes % 11.5; Neutrophils % 71.3; Nucleated RBC 0 %; Platelet Count 253 10^3/uL (130-400); RBC 4.66 10^6/uL (4.36-5.78); RDW 12.6 % (11.8-14.1); RDW-SD 37.9 fL; WBC 10.31 10^3/uL (4.4-10.8)
--- NOTE | 2021-07-12 07:21 | W.PM.PROGNOT ---
Documented by User: GEENA Emmanuel 07/12/21 07:23 Date of Service Date of service: 07/12/21 Time of Service: 07:21 Assessment and Plan Assessment and plan (1) Perforated appendicitis: Status: Acute Assessment and plan: Patient continued to have fevers through the night. Awaiting AM lab results. -Tolerating post op diet -IV Tylenol, PRN Tramadol and Morphine for breakthrough pain -Strongly encouraged activity OOB and to increase ambulation in the hallway. -Continue IV Zosyn -Lovenox for DVT ppx -Encourage incentive spirometer use Subjective Subjective Interval history since last seen: Patient reports that he is feeling okay. Describes having intermittent discomfort. Expresses he felt feverish through the night. Exam Const General: cooperative, healthy appearing and comfortable Orientation: alert and oriented x3 Resp Effort & Inspection: normal respiratory effort, no audible wheezes and no cough GI Palpation: soft, no guarding and nontender Objective Last Vital Signs Temp 37.4 C 07/12/21 05:32 Pulse 108 H 07/12/21 04:10 Resp 16 07/12/21 04:10 BP 127/69 07/12/21 04:10 Pulse Ox 94 07/12/21 04:10 Documented by User: Leonor Butt DO 07/12/21 18:52 Assessment and Plan Assessment and plan (1) Perforated appendicitis: Status: Acute (2) Acute appendicitis: Status: Acute Assessment and plan: Pt seen adn examined. agree w/ above cont IV abx until afeb for 24 hrs. d/c home on abx. high risk for abscess cont supportive care Qualifiers: Acute appendicitis type: with localized peritonitis Appendicitis gangrene presence: unspecified whether gangrene present Appendicitis perforation presence: unspecified whether perforation present Appendicitis abscess presence: without abscess Qualified Code(s): K35.30 - Acute appendicitis with localized peritonitis, without perforation or gangrene (3) Asthma:
[2021-07-12] MEDS: Normal Saline Flush 10 ML SYR IVP ×4 (08:41→22:05)
[2021-07-12] MEDS: Enoxaparin 40 MG/0.4 ML SYR SC (08:41)
--- NOTE | 2021-07-12 08:51 | PDOC.CMPRO ---
- If Service Date Differs Date of service: 07/12/21 Time of Service: 08:51 Care Management Progress Note S/O: Mark Anthony was sitting up in a chair when CM met with him. He was polite but did not engage with CM. Mark Anthony stated that he is feeling a little better. He was febrile last night with a temp of 39C but has been afebrile since and his WBC has normalized. Mark Anthony has been ambulating independently in the halls and is tolerating his diet well. A: 20 year old male admitted 07/09/20 for acute appendicitis with perforation P: Mark Anthony will return home when ready per MD. No additional services anticipated at this time. He will transport via private vehicle with family, follow up with his PCP and plan of care.
[2021-07-12] MEDS: Normal Saline 500 ML 30 ML IV (10:06)
[2021-07-12] MEDS: Pantoprazole 40 MG VIAL IVP (22:07)
[2021-07-13] MEDS: PIPERACILLIN/TAZO 3.375 GM in Normal Saline 50 ML IVPB (04:21)
[2021-07-13] MEDS: Acetaminophen 325 MG TAB 650 MG PO (04:21)
[2021-07-13 07:23] VITALS: BP 136/83; PULSE 93; RESP 16; TEMP 36.6; O2SAT 100
--- NOTE | 2021-07-13 08:32 | W.PM.PROGNOT ---
Date of Service Date of service: 07/13/21 Time of Service: 08:32 Assessment and Plan Assessment and plan (1) Perforated appendicitis: Status: Acute Assessment and plan: POD #3 s/p laproscopic appendectomy No fevers overnight. -Tolerating post op diet -IV Tylenol, PRN Tramadol and Morphine for breakthrough pain -Strongly encouraged activity OOB and to increase ambulation in the hallway. -Continue IV Zosyn -Lovenox for DVT ppx -Encourage incentive spirometer use -(+) BM yesterday D/C home later today. Subjective Subjective Interval history since last seen: Patient denies having any pain. No fevers over night. Exam Const General: cooperative, healthy appearing and comfortable Orientation: alert and oriented x3 Resp Effort & Inspection: normal respiratory effort, no audible wheezes and no cough GI Palpation: soft, no guarding and nontender Auscultation: normal bowel sounds Objective Last Vital Signs Temp 36.6 C 07/13/21 07:23 Pulse 93 H 07/13/21 07:23 Resp 16 07/13/21 07:23 BP 136/83 07/13/21 07:23 Pulse Ox 100 07/13/21 07:23
--- NOTE | 2021-07-13 09:14 | W.PM.DS.N ---
Documented by User: GEENA Emmanuel 07/13/21 09:19 Date of service: 07/13/21 Time of Service: 09:14 DS: Diagnosis Discharge Diagnosis (1) Perforated appendicitis: Status: Acute Discharge Plan Disposition Patient Disposition: HOME Condition: Good Discharge Details Reason For Visit: Acute Appendicitis Admit Date/Time: 07/09/21 20:25 Admit Provider: Radha Green Attending Provider: Radha Green Primary Care Provider: Dilan Vásquez [facility] Hospital Course: 20 y/o male presented to the ER with complaints of a 3 day history of abdominal pain. CT scan was performed in the ER which revealed evidence of acute appendicitis. Patient under went laparosopic appendectomy. Patient stayed in the hospital of an additional 3 days secondary to elevated wbc count and fevers. Patient has been 24 hours without a fever today. Denies having any pain. He has been urinating and having BMs without difficulty. Home Meds and New Rx's Prescriptions: No Action No Known Home Meds RF: 0 Discharge Instructions Instructions: Laparoscopic Appendectomy (DC) Additional Instructions: Activity at Home after surgery: 1. Make sure you walk outside at least 4 times per day 2. You should be able to climb a flight of stairs 3. No driving while in pain or taking pain medications 4. No strenuous activity or heavy lifting for 2 weeks (laparoscopic surgery) Diet, Nutrition, & wound healin. Avoid alcohol until after you are recovered from your surgery 2. Make sure to eat plenty of lean protein (meat, fish, eggs, cottage cheese, beans) 3. Eat a variety of fruits and vegetables. Eat plenty of high fiber foods to avoid constipation. 4. Drink plenty of liquids to stay hydrated and avoid constipation Pain Medications: 1. Tylenol 650mg every 6 hours as needed and Ibuprofen 600 mg every 6 hours as needed. You may alternate between the 2 medications every 3 hours 2. If a narcotic has been prescribed take as directed only for breakthrough pain For Constipation: 1. Take Milk of Magnesia or MiraLax as needed for constipation Other: 1. You may shower daily. Do not scrub the incisions 2. Do not soak the incisions for 1 week 3. You may alternate ice and heat as needed for pain and swelling Wound Care: 1. Keep the incisions clean and dry Please call our office if you develop: 1. Fevers >101.5 2. Nausea or Vomiting 3. Worsening pain 4. Redness and thick discharge from the wounds If after hours please call the Hospital at and ask to speak to the on-call surgeon Referrals: Sondra Howe PA [[facility]] - 07/21/21 9:30 am Activity:: as above Equipment/Supplies:: No Equipment Needed Diet:: Normal Diet Discharge Orders Discharge Orders: Discharge Order (Routine); Ordered 07/13/21 Ordered By: Radha Silveira DS: Summary Time Spent with Patient providing and/or coordinating discharge services: Less than 30 minutes Status at Discharge Functional status at discharge: independent ambulation Overall status at discharge: patient is back to baseline Mental Status: mental status grossly normal Speech and Movement: speech and movement normal Mood: congruent mood Affect: normal affect Exam Const General: cooperative, healthy appearing and comfortable Orientation: alert and oriented x3 Resp Effort & Inspection: normal respiratory effort, no audible wheezes and no cough GI Inspection: normal to inspection Palpation: soft, no guarding and nontender Auscultation: normal bowel sounds Psych Mental Status: mental status grossly normal Speech and Movement: speech and movement normal Mood: congruent mood Affect: normal affect DS: Data Vitals/I&O Vitals and I&O: Vital Signs Temperature 36.6 C 07/13/21 07:23 Temperature Source Skin 07/13/21 07:23 Pulse 93 H 07/13/21 07:23 Pulse Rhythm Regular 07/13/21 07:26 Pulse 98 H 07/09/21 21:01 Respiratory Rate 16 07/13/21 07:23 Respiratory Effort Non-Labored 07/13/21 07:26 Respiratory Depth Normal 07/13/21 07:26 Respiratory Pattern Normal 07/13/21 07:26 Blood Pressure 136/83 07/13/21 07:23 Blood Pressure Mean 75 07/09/21 21:00 Blood Pressure Position Sitting 07/09/21 19:27 Pulse Oximetry 100 07/13/21 07:23 Respiratory End-tidal CO2 48 07/10/21 10:59 Oxygen Delivery Method Room Air 07/13/21 07:23 Oxygen Flow Rate 0 07/13/21 07:23 Pain Level 0 07/13/21 07:23 Comment 07/13/21 07:23 Intake & Output 07/12/21 07/13/21 07/13/21 18:59 06:59 18:59 Intake Total 990.5 / 1040.5 50 / 1040.5 Output Total 400 / 800 400 / 800 Balance 590.5 / 240.5 -350 / 240.5 Intake: IV 150.5 / 200.5 50 / 200.5 Oral 840 / 840 Output: Urine 400 / 800 400 / 800 Other: Urine Color Yellow Yellow Urine Appearance Clear Clear Urine Odor Normal Normal Comment patient independent to bathroom, states he is having no urinary issues. pt reports he is voiding ad marina, denies GI/ issues. urine not assessed at this time patient stated he last went this morning around 0730 Stool Size Moderate Stool Characteristics Soft Voiding Methods Toilet Toilet Toilet PFSH All Active Problems (Updated 07/10/21 @ 11:40 by Radha Green DO) Perforated appendicitis (Acute) Acute appendicitis (Acute) Medical History (Updated 07/10/21 @ 11:40 by Radha Green DO) Asthma Family History (Updated 06/06/16 @ 13:51 by Mandy Mojica NP) Mother No problems noted. Father No problems noted. Sister No problems noted. Brother No problems noted. Other Depression Social History Smoking/Tobacco Use Status: Never Smoking risk assessment performed?: Yes Alcohol Intake: current Alcohol Intake frequency: holidays/special occasions only Substance use type: does not use Do you feel safe at home: Yes Do you feel safe in your relationship?: Yes Documented by User: Radha Silveira MD 07/13/21 09:42 Discharge Plan Disposition Patient Disposition: HOME Condition: Good Discharge Details Reason For Visit: Acute Appendicitis Admit Date/Time: 07/09/21 20:25 Admit Provider: Radha Green Attending Provider: Radha Green Primary Care Provider: [facility] Course Hospital Course: 20 y/o male presented to the ER with complaints of a 3 day history of abdominal pain. CT scan was performed in the ER which revealed evidence of acute appendicitis. Patient under went laparosopic appendectomy. Patient stayed in the hospital of an additional 3 days secondary to elevated wbc count and fevers. Patient has been 24 hours without a fever today. Denies having any pain. He has been urinating and having BMs without difficulty. Home Meds and New Rx's Prescriptions: No Action No Known Home Meds RF: 0 Discharge Instructions Instructions: Laparoscopic Appendectomy (DC) Additional Instructions: Activity at Home after surgery: 1. Make sure you walk outside at least 4 times per day 2. You should be able to climb a flight of stairs 3. No driving while in pain or taking pain medications 4. No strenuous activity or heavy lifting for 2 weeks (laparoscopic surgery) Diet, Nutrition, & wound healin. Avoid alcohol until after you are recovered from your surgery 2. Make sure to eat plenty of lean protein (meat, fish, eggs, cottage cheese, beans) 3. Eat a variety of fruits and vegetables. Eat plenty of high fiber foods to avoid constipation. 4. Drink plenty of liquids to stay hydrated and avoid constipation Pain Medications: 1. Tylenol 650mg every 6 hours as needed and Ibuprofen 600 mg every 6 hours as needed. You may alternate between the 2 medications every 3 hours 2. If a narcotic has been prescribed take as directed only for breakthrough pain For Constipation: 1. Take Milk of Magnesia or MiraLax as needed for constipation Other: 1. You may shower daily. Do not scrub the incisions 2. Do not soak the incisions for 1 week 3. You may alternate ice and heat as needed for pain and swelling Wound Care: 1. Keep the incisions clean and dry Please call our office if you develop: 1. Fevers >101.5 2. Nausea or Vomiting 3. Worsening pain 4. Redness and thick discharge from the wounds If after hours please call the Hospital at and ask to speak to the on-call surgeon Referrals: Sondra Howe PA [[facility]] - 07/21/21 9:30 am Activity:: as above Equipment/Supplies:: No Equipment Needed Diet:: Normal Diet Discharge Orders Discharge Orders: Discharge Order (Routine); Ordered 07/13/21 Ordered By: Radha Silveira [facility] All Active Problems (Updated 07/10/21 @ 11:40 by Radha Green DO) Perforated appendicitis (Acute) Acute appendicitis (Acute) Medical History (Updated 07/10/21 @ 11:40 by Radha rGeen DO) Asthma Family History (Updated 06/06/16 @ 13:51 by Mandy Mojica NP) Mother No problems noted. Father No problems noted. Sister No problems noted. Brother No problems noted. Other Depression Social History Smoking/Tobacco Use Status: Never Smoking risk assessment performed?: Yes Alcohol Intake: current Alcohol Intake frequency: holidays/special occasions only Substance use type: does not use Do you feel safe at home: Yes Do you feel safe in your relationship?: Yes
--- NOTE | 2021-07-13 10:42 | PDOC.CMDIS ---
- If Service Date Differs Date of service: 07/13/21 Time of Service: 10:42 LACE Index Scoring Tool - Questions: Length of Stay (in days): 4 - 6 Acuity (Admit via E.D.?): Yes E.D. Visits: 1 - Answers: Total Score: 8 Risk of Readmission: Low Risk Care Management Discharge Reason for Hospitalization: Acute appendicitis with perforation Discharge Plan: Mark Anthony will return home with no new services. He will follow up with surgical services and his PCP and plan of care as prescribed. He will transport via private vehicle with his mother. Patient/Family Education Needs: Review of discharge instructions, discuss Ask Me Three.
== END 2021-07-13 10:42 | disposition home or self-care (01) | DRG 340 ==
LOC: ER 21:08 → MS 21:31
PROVIDERS: Surgery; Admitting Provider Surgery; Emergency Provider Nurse Practitioner Family; PCP Family Medicine; Visit Provider Surgery
PROC: 0DTJ4ZZ Resection of Appendix, Percutaneous Endoscopic Approach (ICD-10-PCS; CPT 44970; principal; 2021-07-10 08:00)
DX: K35.32 Acute appendicitis with perforation, localized peritonitis, and gangrene, without abscess (principal); J45.909 Unspecified asthma, uncomplicated
CPT/HCPCS: 44970; 36415; 80048; 80053; 83690; 86850; 86900; 86901; 87637; 96361; 96365; 96375; 99285; J1650; 74177; 81003; 81015; 83735; 85025; 85610; 88304; J0131; J1100; J1885; J2250; J2270; J2405; J2543; J2704; J3480; J3490